=== PATIENT | female | born 1985 ===

== ENCOUNTER 2017-12-29 18:11 | Outpatient (CLI) | payer OTHER ==
[~2017-12-29 18:11] MED LIST: CIPRO500 MG PO; PEPCID40 MG PO; ZOFRAN4 MG PO
== END 2017-12-29 18:42 | disposition home or self-care (01) ==
LOC: NST 18:11
DX: Z34.82 Encounter for supervision of other normal pregnancy, second trimester (principal)

== ENCOUNTER 2018-03-28 13:15 | Inpatient (IN) | payer OTHER ==
[~2018-03-28] VITALS: Ht 147.3 cm; Wt 59.0 kg
== END 2018-04-13 10:26 | disposition home or self-care (01) | DRG 807 ==
LOC: LDR 04-11 06:26 → SURG-SUITE 04-11 06:26 → RECOVERY 04-18 13:15
PROC: 10E0XZZ Delivery of Products of Conception, External Approach (ICD-10-PCS; principal; 2018-04-11)
PROC: 0UQGXZZ Repair Vagina, External Approach (ICD-10-PCS; 2018-04-11)
PROC: 3E033VJ Introduction of Other Hormone into Peripheral Vein, Percutaneous Approach (ICD-10-PCS; 2018-04-11)
PROC: 4A1HXCZ Monitoring of Products of Conception, Cardiac Rate, External Approach (ICD-10-PCS; 2018-04-11)
DX: O71.4 Obstetric high vaginal laceration alone (principal); Z37.0 Single live birth; Z3A.39 39 weeks gestation of pregnancy; Z22.330 Carrier of Group B streptococcus